=== PATIENT | female | born 1970 | race Caucasian/White ===

== ENCOUNTER 2025-06-19 20:23 | Inpatient (IN) | payer BC ==
[~2025-06-19] VITALS: Ht 157.5 cm; Wt 82.0 kg
--- NOTE | 2025-06-19 20:32 | ELECTROCARDIOGRAPH REPORT ---
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
[2025-06-19 20:42] LABS: MEAN PLATELET VOLUME 7.1 FL (7.4-10.4); RED CELL DISTRIBUTION WIDTH 12.7 % (11.5-14.5)
--- NOTE | 2025-06-19 20:55 | RADIOLOGY REPORT ---
EXAM: DI CHEST,SINGLE VIEW CLINICAL HISTORY: CP TECHNIQUE: Single AP view of the chest WID: COMPARISON: None FINDINGS: Lines and tubes: ACDF projects over the lower cervical spine. Chest: The heart size and pulmonary vasculature is within normal limits. No pleural effusion, pneumothorax, or consolidation. The osseous structures are grossly intact. IMPRESSION: 1. No acute cardiopulmonary abnormality.
[2025-06-19 21:05] LABS: CREATININE 0.96 MG/DL (0.40-0.90); PRO BRAIN NATRIURETIC PEPTIDE 129 PG/ML (0-125); TOTAL CARBON DIOXIDE 20.6 MMOL/L (24-32); eCRCL 52 ML/MIN; eGFR 60 ML/MIN
[2025-06-19 21:37] LABS: APTT 26 SECONDS (22-32)
[2025-06-19] MEDS ORDERED: heparin 10,000 units/1 ML INJ IV PRN (21:45)
[2025-06-19] MEDS: HEPARIN DRIP-CARDIAC**PHARMACIST-TO-DOSE IV ONE (21:48)
[2025-06-19] MEDS: heparin 10,000 units/1 ML INJ IV ONE (22:04)
[2025-06-19] MEDS: heparin 25,000 UNIT/250ml bag 250 ML IV PRN (22:05)
[2025-06-19] MEDS: MESSAGE TO NURSING IV ONE (22:10)
[2025-06-19] MEDS ORDERED: magnesium sulf-water 4G/100mL 100 ML IV PRN (22:15)
[2025-06-19] MEDS ORDERED: magnesium sulf-water 2g/50mL 50 ML IV PRN (22:15)
[2025-06-19] MEDS ORDERED: HYDROmorphone inj. 0.5 MG/0.5 ML DISP.SYRIN IV PRN (22:15)
[2025-06-19] MEDS ORDERED: HYDROmorphone/PF 0.2 MG/ML SYRINGE IV PRN (22:15)
[2025-06-19] MEDS ORDERED: magnesium Cl slow-release 64mg tablet PO PRN (22:15)
[2025-06-19] MEDS ORDERED: mag hydrox/Alum hydrox/simeth 30ml oral suspension PO PRN (22:15)
[2025-06-19] MEDS ORDERED: potassium Cl 20 mEq SR tablet PO PRN (22:15)
[2025-06-19] MEDS ORDERED: ondansetron/PF 4mg/2ml inj IV PRN (22:15)
[2025-06-19] MEDS ORDERED: potassium Cl 40MEQ/1/2NS 520ml 520 ML IV PRN (22:15)
[2025-06-19] MEDS ORDERED: magnesium hydroxide 30ml (MOM) UD suspension PO PRN (22:15)
[2025-06-19] MEDS: PERFLUTREN PROTEIN-A MICROSPHR (Optison) 0.22 MG/ML 3ML VIAL IV ONE (22:35)
[2025-06-19 23:11] LABS: CHOL/HDL RATIO 5.6 (0.00-4.99); LDL CHOLESTEROL 193 MG/DL (50-100)
[2025-06-19] MEDS: carvedilol 6.25mg tablet PO SCH (23:21)
[2025-06-19] MEDS: aspirin 81mg, enteric-coated 1 TAB TABLET.DR PO SCH (23:21)
[2025-06-19] MEDS: potassium Cl 20 mEq SR tablet PO PRN (23:32)
--- NOTE | 2025-06-19 23:40 | HISTORY AND PHYSICAL-Residence ---
History & Physical Providers to CC Resident Creating Document: MAT ARROYO, RES ~ History of Present Illness Primary Medical Doctor: Eric De La Rosa [place] Reason for Admit\Complaint: Chest pain History of Present Illness 55 years old women with past medical history of Hyperlipidemia,Depression and anxiety Comes to ED with left sided chest pain, Patient reported experiencing on and off chest pain for past 4 weeks with each episode lasting about 10mins and typically subsided with breathing. Today, She developed more severe chest pain that began around 4:30 pm when at rest.which lasted 2 hrs,Described asw crushing pain on the left side of chest , was rated 10/10 in intensity which radiating to both shoulder, arms and the neck- now the pain is 2/10 dull left chest pain. there are no clear aggravating or relieving factors. 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 Lives with Her Spouse at Home Smokes 1 pack cigarette every 3 days from past 14 years Smokes marijuana every night for sleep Not a drug user Not a alcohol drinker Her PCP: Dr.Jennerfer [facility] (she has appointment this Friday) ROS ROS Constitutional: No fever, chills, dizziness, weakness, weight gain or loss Eyes: No pain, erythema, discharge, blurring of vision ENT: No sore throat, epistaxis, tinnitus Cardiovascular: presents with 2/10 dull chest pain, No current palpitations, syncope, lower extremity edema, paroxysmal nocturnal dyspnea Respiratory: patient reported shortness of breath during chest pain , No cough, hemoptysis Gastrointestinal: Constipation and decrease appetite , No Nausea, vomiting,diarrhea and abdominal pain. No, hematemesis, bloating, melena Genitourinary: No frequency, urgency, nocturia, hematuria or dysuria Musculoskeletal: Patient has a long history of on and off back pain and join pain Integumentary: No change in skin, hair, nails. No swelling, bruising, abrasions Neurologic: No headache, neck pain, numbness or tingling of the extremities, weakness Psychiatric: patient takes medication for depression,No delusions, loss of interest in normal activity or change in sleep pattern, hallucinations, suicidal ideations Endocrine: No fatigue, weakness, polydipsia, polyuria, change in appetite, heat or cold intolerance, sweating, dry skin Hematological: No bleeding, petechiae, bruising Allergies: No asthma or urticaria Exam Vitals: Vital Signs Date Time Temp Pulse Resp B/P (MAP) Pulse Ox O2 Delivery O2 Flow Rate FiO2 06/19/25 23:22 63 06/19/25 21:20 18 06/19/25 20:28 98.0 99 0 General: Alert and oriented x4 HEENT: Normocephalic and atraumatic. Pupils equal round reactive to light and accommodation. Extraocular movements intact. Oral and nasal mucosa moist. Neck: Trachea is in midline. No masses or JVD Chest: Bilateral normal breath sounds. No crackles, rhonchi or wheezes Cardiovascular: Regular rate and regular rhythm. S1-S2 normal. No rubs or murmurs Abdomen: No tenderness present. Soft and nondistended. Normoactive bowel sounds Extremities: No cyanosis, clubbing or edema. Central Nervous System: No gross sensory or motor deficits CN II to XII grossly intact Skin: Warm and dry Diagnostic Data Last Recorded Lab Results: 06/19/25203506/19/252035 Diagnostic Data: Laboratory Tests Test 06/19/25 20:36 Activated Partial Thromboplast Time 26 SECONDS (22-32) Coagulation Comments Counseling Services Smoking & Tobacco Cessation: 3-10 Minutes Advance Care Planning Advanced Care plannin - 30 Minutes Additional Plan 55 years old women with past medical history Bipolar disorder, anxiety, depression and hyperlipidemia is currently evaluated for chest pain NSTEMI HASMUKH Score : 3 Heart Score : 1 patient presented with 10/10 chest pain at rest presented to ED that relieved with Nitroglycerin EKG: Sinus rhytm , Right axis deviation , Abnormal T wave Troponin [id number] trending up ProBnp: 129 BP:125/72 , Pulse :62 , Oxygen: 99 on room air, RR: 16 H/H; 14.9/43.4 , WBC: 9.4 , platelet : 259 Pt: 26 Na:138, K: 3.4 , HCO3: 20.6 Blood glucose : 140 , HbA1C: 5.4 Urine tox : Positive for Cannabinoids Chest Xray : No acute cardiopulmonary abnormality Lipid panel : T, Cholesterol;258, LDL: 193 Plan: Started on Heparin drip Given Asprine loading dose 324 mg PO once and started on Asprine 81 mg Po daily started Carvedilol 3.25mg Po BID Started Atrovostatin 40mg Po Daily Started 5mg Lisinopril Po OD Started Nitroglycerin sublingual 0.4 mg PRN Follow up with ECHO and CTA Chest x NPO Midnight for Cardiology consult tomorrow for further management H/O Hyperlipidemia : Patient mentioned having a history of hyperlipidemia and she currently not on any antihyperlipidemic drugs Lipid panel : T, Cholesterol;258, LDL: 193 Plan: Started on Started Atrovostatin 40mg Po Daily Follow up with PCP H/O Depression : Continue home Bupropion H/O Anxiety: Continue home med busprinone H/O insomnia Continue home med trazadone H/O Post Menopausal Syndrome: patient who is a current smoker is on Estradiol 1mg and Medroxyprogesterone 5 mg po Daily plan: Held Home med for PMS Code status: Full code Diet: NPO DVT prophylaxis: Heparin Drip Disposition: Patient is started on medical management and her troponins are trending up [phone], Currently on NPO and cardiology consult tomorrow for further management Mat Arroyo MD Internal Medicine, PGY 1 I saw and discussed the care of this pt with the resident team I have asked that in addition to acute ACS mgt which is in progress we will get a CTA chest as well to investigate and exclude a dissection etc I reviewed the resting EKG done of this patient as well. We will have cardiology come on board AYANNA Monitor closely in the PCU ---low threshold to move to ICU Thank you Date of Service: Jun 19, 2025 Billing Provider: EMILY GILBERT MD, SATISH, RES Jun 19, 2025 23:40 EMILY GILBERT MD Jun 20, 2025 03:50
[2025-06-19] MEDS ORDERED: TRAZ-251 PO (23:47)
[2025-06-19] MEDS ORDERED: BUSP10TA3 PO (23:53)
[2025-06-19] MEDS ORDERED: OMEP20TA23 PO (23:53)
[2025-06-19] MEDS ORDERED: MEDR5TAB4 PO (23:53)
[2025-06-19] MEDS ORDERED: LORA10TA65 PO (23:53)
[2025-06-19] MEDS ORDERED: ESTR1TAB28 PO (23:53)
[2025-06-19] MEDS ORDERED: BUPR-726 PO (23:53)
[2025-06-20] VITALS (20 sets, daily range): BP systolic 94–163; BP diastolic 44–98; PULSE 57–83; RESP 11–20; TEMP 97.6–98.6; O2SAT 83–98
[2025-06-20 00:46] LABS: LEUKOCYTE ESTERASE ,URINE NEGATIVE (Neg); NITRITES, URINE NEGATIVE (Neg); OCCULT BLOOD,URINE NEGATIVE (Neg)
[2025-06-20 00:51] LABS: UA COLLECTION TYPE CLN CATCH MIDSTREAM
[2025-06-20 01:04] LABS: URINE AMPHETAMINE SCREEN NEGATIVE (Neg); URINE BARBITUATE SCREEN NEGATIVE (Neg); URINE BENZODIAZEPINES SCREEN NEGATIVE (Neg); URINE CANNABINOID SCREEN POSITIVE (Neg); URINE COCAINE SCREEN NEGATIVE (Neg); URINE METHADONE SCREEN NEGATIVE (Neg); URINE OPIATE SCREEN NEGATIVE (Neg); URINE PHENCYCLIDINE SCREEN NEGATIVE (Neg)
[2025-06-20] MEDS: HYDROcodone/acetaminophen 10/325mg tab PO PRN (03:13)
[2025-06-20] MEDS: diphenhydrAMINE 25 MG/10 ML UD oral solution PO ONE ×2 (04:05→23:24)
--- NOTE | 2025-06-20 05:08 | RADIOLOGY REPORT ---
Procedure: CT CTA AORTA DISECTION W/ IV CONTRAST HISTORY: possible aortic dissection, severe chest pain Comparison Study: None Exam Date:06/20/2025 04:32 AM TECHNIQUE: CTA scanner volumetric data acquisition of chest, abdomen and pelvis was obtained following intraveno us administration of intravenous contrast without any reported adverse effects. Axial images were re constructed and additional sagittal and coronal images were reformatted. arterial phase imaging were performed. Postprocessing was also performed on a Separate workstation. 3D images were performed on a dedicated workstation and reviewed for reporting. Radiation Dose : CT Dose: CTDI volume is 21.6 mGy. Dose-length product is 1381.7 mGy*cm FINDINGS: Vascular: There is normal caliber of abdominal aorta without evidence of aortic dissection or aneurysm. The mesenteric, and bilateral renal, iliac and femoral arteries are widely patent without any focal enrico nosis or aneurysm. Lung : Dependent atelectasis. 0.5 cm ground-glass nodule in the left lower lobe, image 46.0.4 cm nodu le in the right upper lobe, image 37. Liver: The liver is normal in size. No focal lesions. Normal hepatic vascular enhancement. Gallbladder and Biliary Tree: Unremarkable Spleen: Unremarkable Pancreas: The pancreas is normal in appearance without focal lesions or abnormal enhancement. Adrenal Glands: Unremarkable Kidneys: No hydronephrosis. 0.1 cm punctate nonobstructing stone in the left lower pole kidney. Bladder: Unremarkable Bowel: The stomach is grossly normal in appearance. Small bowel and colon are normal in caliber and d istribution. Normal appendix is visualized in the right lower quadrant without findings of appendici tis. Ascites: Absent Lymphadenopathy: No mesenteric, retroperitoneal or periportal lymphadenopathy. Abdominal Wall and Mesentery: Unremarkable. Vasculature: The visualized abdominal aorta is normal in size and caliber. Abdominal and pelvic vess els demonstrate normal enhancement. Pelvic Organs: Unremarkable Musculoskeletal: No aggressive focal bony lesions, acute fractures or dislocation. IMPRESSION: No evidence of acute aneurysm, dissection, or intramural hematoma. 0.5 cm ground-glass nodule in the left lower lobe, image 46. 0.4 cm nodule in the right upper lobe, image 37. 0.1 cm punctate nonobstructing stone in the left lower pole kidney. Fleischner Society pulmonary nodule recommendations (2017): Single solid nodule <6 mm Low-risk patients: no routine follow-up required High-risk patients: optional CT at 12 months (particularly with suspicious nodule morphology and/or upper lobe location) Solitary solid nodule 6-8 mm Low-risk patients: CT at 6-12 months, then consider CT at 18-24 months High-risk patients: CT at 6-12 months, then CT at 18-24 months Solitary solid nodule >8 mm (>250 mm3) Low-risk and high-risk patients: consider CT at 3 months, PET/CT, or tissue sampling Multiple solid nodules <6 mm Low-risk patients: no routine follow-up required High-risk patients: optional CT at 12 months Multiple solid nodules >6 mm Low-risk patients: CT at 3-6 months, then consider CT at 18-24 months High-risk patients: CT at 3-6 months, then CT at 18-24 months When multiple nodules are present, the most suspicious nodule should guide further individualized management. Solitary groundglass opacities < 6 mm require no follow-up Multiple groundglass opacities < 6 mm: CT 3-6 months. If stable consider CT at 2 , and 4 years Groundglass opacities >6 mm: follow-up in 6-12 months and then every 2 years for 5 years. Groundglass opacities greater than 6 mm with part solid component follow-up CT in 3-6 months to confirm persistence. If unchanged and solid component remains less than [address] for 5 years Multiple groundglass opacities greater than 6 mm: CT at 3-6 months. Subsequent management based on the most suspicious nodules. These recommendations do not necessarily apply to women, patients with immunosuppression or a prior history of cancer, patients with multiple nodules that are suspicious for metastasis or infection, or patients with mediastinal lymphadenopathy or pleural effusion in whom cancer is strongly suspected.
[2025-06-20 06:38] LABS: MEAN PLATELET VOLUME 7.7 FL (7.4-10.4); RED CELL DISTRIBUTION WIDTH 12.5 % (11.5-14.5)
[2025-06-20 07:20] LABS: CREATININE 0.87 MG/DL (0.40-0.90); TOTAL CARBON DIOXIDE 21.4 MMOL/L (24-32); eCRCL 57 ML/MIN; eGFR 67 ML/MIN
[2025-06-20] MEDS: K and/or MAG REPLACEMENT MC SCH (08:00)
[2025-06-20] MEDS: pantoprazole 40mg Tablet.DR PO SCH (09:15)
[2025-06-20] MEDS: BUPROPION HCL 150MG XL 24 HR 150 MG TAB PO SCH (09:15)
[2025-06-20] MEDS: docusate sod 100mg capsule PO SCH (09:17)
[2025-06-20] MEDS: MESSAGE TO NURSING IV ONE ×2 (11:10→22:10)
[2025-06-20] MEDS: normal saline 1000ml 1,000 ML IV ONE (12:24)
[2025-06-20] MEDS ORDERED: LIDOcaine 1% (10mg/ml) 2ml vial ONE (13:05)
[2025-06-20] MEDS ORDERED: midazolam 1 mg/ML 2ml injection ONE ×2 (13:05→13:58)
[2025-06-20] MEDS ORDERED: verapamil 2.5 mg/ml inj IV ONE (13:05)
[2025-06-20] MEDS ORDERED: fentaNYL/PF 50MCG/1 ML 2ML syringe ONE ×2 (13:05→13:58)
[2025-06-20] MEDS ORDERED: iohexol 350 MG/ML 50ML vial IV ONE (13:05)
[2025-06-20] MEDS ORDERED: heparin 1,000unit/ml 10ml vial 10 ML ONE (13:05)
[2025-06-20] MEDS ORDERED: nitroGLYCERIN 500mcg/5mL D5W 5 ML IV ONE ×3 (13:05→14:29)
[2025-06-20] MEDS ORDERED: atropine 0.1mg/ml 10ml syringe ONE (14:29)
[2025-06-20 14:52] LABS: ISTAT HGB ART 12.9 g/dl (12.0-16.0); ISTAT Hct ART 38 %PCV (35-45); ISTAT O2 SATURATION ARTERIAL 96 % (95-98); ISTAT SOURCE ART
[2025-06-20] MEDS ORDERED: normal saline 1000ml 1,000 ML IV SCH (15:30)
--- NOTE | 2025-06-20 17:17 | ELECTROCARDIOGRAPH REPORT ---
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 RANDY Castillo Measurements Intervals [place] Rate: 58 P: 60 NV: 139 QRS: 3 QRSD: 101 T: 4 QT: 463 QTc: 455 Interpretive Statements Sinus rhythm Borderline T abnormalities, inferior leads Electronically Signed On 06-20-2025 19:25:[address] RANDY Castillo Please click the below link to view image of tracing.
--- NOTE | 2025-06-20 17:41 | PROGRESS NOTE- Residence ---
Progress Note - Resident Providers to CC Resident Creating Document: BENNY HUBER RES ~ Antibiotic Timeout Antibiotic Ordered?: No Subjective Patient was seen and examined at bedside, claims of improvement in chest pain since yesterday. Patient to undergo cardiac catheterization today. Objective Vital Signs Date Time Temp Pulse Resp B/P (MAP) Pulse Ox O2 Delivery O2 Flow Rate FiO2 06/20/25 16:00 97.7 60 16 132/70 (90) 98 06/20/25 08:00 Room Air 0.0 Result Diagram: 06/20/25 0539 06/20/25 0539 Awake , alert, and oriented x4, resting comfortably in the bed, in no acute distress HEENT: Atraumatic, normocephalic, EOMI, anicteric sclera ; pink conjunctiva Neck: Trachea midline. Supple, full range of motion, no JVD Cardiac: Regular rhythm, regular rate with no murmurs all over the precordium. Respiratory: Equal breath sounds bilaterally, no tachypnea, no wheezing ,rub or rales, Chest wall is symmetric and without deformity. Gastrointestinal: Abdomen symmetric, non-distended, soft, non-tender, normal bowel sounds x4 quadrant, normoactive, no hepatosplenomegaly Musculoskeletal: No pedal edema, no cyanosis Neurological: Speech is clear, alert, and oriented x 4. No motor or sensory deficit, deep tendon reflexes normal, cerebellar intact. Cranial nerves II-XII intact. Skin: Warm and dry Coagulation Studies Laboratory Tests Test 06/19/25 20:36 06/20/25 10:16 06/20/25 14:41 Activated Partial Thromboplast Time 26 SECONDS (22-32) APTT (Heparin Protocol) 84 SECONDS (45-60) H Coagulation Comments Activated Clotting Time 210 SEC (101-148) H Advance Care Planning Advanced Care plannin - 30 Minutes Assessment Assessment 55-year-old female with hyperlipidemia, depression/anxiety, and smoking history presenting with NSTEMI (MERI 3, HEART 6). She is hemodynamically stable, troponins are rising, and EKG shows nonspecific changes. She is appropriately on aspirin, statin, beta-shannan, NOEL inhibitor, and heparin drip. Patient is NPO and scheduled for urgent cardiac catheterization today per Dr. Román Gibbons (Cardiology). Plan Plan 1.NSTEMI (Non-ST Elevation Myocardial Infarction) MERI Score: 3 (intermediate risk; ~13% risk of /LA/revascularization in 14 days). HEART Score: 6 (History: highly suspicious = 2, ECG: abnormal ST/T = 1, Age: 4465 = 1, Risk factors: 3 = 2 [HLD, smoking, estrogen use, psychiatric meds], Troponin: >3 normal = 2) High risk, recommends admission, invasive strategy. Presentation: 55-year-old female with history of hyperlipidemia, anxiety, depression, and bipolar disorder presenting with severe left-sided chest pain at rest (10/10, crushing, radiating to shoulders/arms/neck, associated with palpitations, dizziness, chills). Pain improved with nitroglycerin, currently 2/10 dull. Investigations: EKG: Sinus rhythm, right axis deviation, abnormal T waves Troponin: rising (324 1416 2228) BNP: 129 (not markedly elevated) CTA Chest: No acute aortic or pulmonary pathology Chest X-ray: No acute cardiopulmonary abnormality Plan: Continue Heparin drip until cardiac catheterization Aspirin 81 mg PO daily (s/p loading dose 324 mg) Atorvastatin 40 mg PO daily (high-intensity statin Carvedilol 3.25 mg PO BID for rate and BP control Lisinopril 5 mg PO daily (neurohormonal blockade, CAD benefit) Nitroglycerin 0.4 mg SL PRN for chest pain NPO for left heart catheterization (LHC) today Consulted Dr. Román Gibbons (Cardiology) Proceed with cardiac catheterization today for definitive management 2.Hyperlipidemia LDL 193 mg/dL, Total cholesterol 258 mg/dL, TG 146 mg/dL Plan: Continue Atorvastatin 40 mg PO daily Follow-up: Outpatient PCP and lipid panel recheck in 68 weeks 3.Psychiatric Disorders (Depression, Anxiety, Bipolar Disorder, Insomnia) Bupropion (continue) Buspirone (continue) Trazodone (continue) Plan: Continue home psychiatric medications as tolerated during admission 4.Post-Menopausal Hormone Therapy (Estradiol + Medroxyprogesterone) Patient is a smoker on estrogen/progestin therapy increases thrombotic risk in setting of ACS. Plan: Hold estrogen and medroxyprogesterone indefinitely. Recommend outpatient gynecology/PCP discussion for non-hormonal management of menopausal symptoms. 5.Electrolyte Abnormalities Hypokalemia Potassium 3.4 mmol/L, HCO3 20.6 mmol/L (mild metabolic acidosis). Plan: Replete K to maintain >4.0 in ACS setting. Monitor BMP. 6.Social / Lifestyle Factors Tobacco use and cannabis use (urine tox positive). Counseling for smoking cessation (high cardiovascular risk) Nicotine replacement post-procedure Stereotype Caster on cannabis cessatio Diet: NPO until after cardiac catheterization Code Status: Full code. Disposition: Inpatient, awaiting [facility] today Follow-up: Cardiology to guide post-cath management (possible PCI). PCP follow- up for chronic disease management Benny Huber MD Internal Medicine Resident, PGY-2 Date of Service: Jun 20, 2025 Billing Provider: YUDITH FONG MD Common Visit Codes: 38350-[id number] INP/OBS CARE(HIGH) BENNY HUBER, RES Jun 20, 2025 17:41 YUDITH FONG MD Jun 20, 2025 21:10
--- NOTE | 2025-06-20 19:22 | CARDIOLOGY REPORT ---
APPROVED REPORT EXAM: Comprehensive 2D, Doppler, and color-flow Echocardiogram. Patient Location: 3028 A Blood Pressure: 132/70 mmHg Heart Rate: 53 bpm Rhythm: SINUS BRADYCARDIA Indications CHEST PAIN ELEVATED PROBNP (129) HS TROPONIN 324, 1416, 2228 Hog Tender: Marjorie Smith MD (consult) Previous echo: none 2D Dimensions RVDd 3.6 cm LA Diam4.5 cm IVSd 0.9 (0.7-1.1cm) LVDd 4.3 cm PWd 1.0 (0.7-1.1cm) IVSs 1.3 (0.8-1.2cm) LVDs 2.4 (2.5-4.0cm) PWs 1.5 (0.8-1.2cm) LVOT Diameter 1.92 (1.8-2.4cm) LVEF(%) 56.4 (>50%) Ao Asc Diam.2.77 cmIVC 17.76 mm FS (%) 44.8 % SV 62.8 ml CO 3.3 L/min M-Mode Dimensions Left Atrium(MM) 3.20 (2.5-4.0cm) Aortic Root 2.37 (2.2-3.7cm) Aortic Cusp Exc 1.60 (1.5-2.0cm) Biplane 2D LA Volumes LA ESV Index 13.57 mL/m2 Aortic Valve AoV Peak José Manuel. 163.7 cm/s AoV VTI 36.3 cm AO Peak GR. 10.7 mmHg AO Mean GR. 6 mmHg LVOT VTI 26.79 cm LVOT Peak José Manuel. 101.1 cm/s ZACH(VTI)/BSA 2.13 cm2/m2 ZACH (VTI) 2.13 cm2 Mitral Valve MV E Velocity 95.7 cm/s MV Peak Gr. 5 mmHg MV DECEL TIME 212 ms MV A Velocity 86.8 cm/s MV PHT 56 ms E/A Ratio 1.1 MVA (PHT) 3.93 cm2 MV XZnm703.2 cm/s TDI Medial E' P. V 8.52 cm/s E/Medial E' 11.2 Tricuspid Valve TR P. Velocity 257 cm/s RAP ESTIMATE 10 mmHg TR Peak Gr. 27 mmHg RVSP 37 mmHg Pulmonary Vein S1 Velocity 60.5 cm/s D2 Velocity 34.4 cm/s PVa Bpaxumwo40.1 cm/s PVa Rfcesxph16 msec LEFT VENTRICLE Normal LV size and wall thickness. Overall systolic function is normal. Aberrant LV band is present. Overall LVEF is 55-60%. RIGHT VENTRICLE RV is mildly dilated in size with normal function. RVSP is estimated at 37 mmHg. ATRIA LA size is normal. AORTIC VALVE Trileaflet AV appears mildly sclerotic without stenosis or insufficiency. MITRAL VALVE Mild MV annular calcification without stenosis. Moderateregurgitation. TRICUSPID VALVE TV appears structurally normal with moderate regurgitation. PULMONIC VALVE Normal PV without stenosis, physiologic insufficiency. GREAT VESSELS Aortic root is normal in size. Ascending aorta is normal in size. IVC is normal in size and collapses greater than 50% with inspiration. PERICARDIUM Normal pericardium. No effusion. Other Information Study Quality: Adequate Conclusion Overall LVEF is 55-60%. Normal LV size and wall thickness. Overall systolic function is normal. Aberrant LV band is present. RV is mildly dilated in size with normal function. RVSP is estimated at 37 mmHg. Trileaflet AV appears mildly sclerotic without stenosis or insufficiency. Mild MV annular calcification without stenosis. Moderateregurgitation. TV appears structurally normal with moderate regurgitation. Normal PV without stenosis, physiologic insufficiency. Normal pericardium. No effusion.
[2025-06-21 02:00] VITALS: BP 110/63; PULSE 62; RESP 16; TEMP 98.6; O2SAT 96
[2025-06-21 02:35] LABS: APTT 31 SECONDS (22-32)
[2025-06-21 02:42] LABS: MEAN PLATELET VOLUME 7.5 FL (7.4-10.4); RED CELL DISTRIBUTION WIDTH 12.6 % (11.5-14.5)
[2025-06-21 02:49] LABS: CREATININE 0.74 MG/DL (0.40-0.90); PRO BRAIN NATRIURETIC PEPTIDE 471 PG/ML (0-125); TOTAL CARBON DIOXIDE 22.2 MMOL/L (24-32); eCRCL 67 ML/MIN; eGFR 81 ML/MIN
[2025-06-21] MEDS: MESSAGE TO NURSING IV ONE (03:05)
--- NOTE | 2025-06-21 03:50 | CONSULTATION ---
DATE OF CONSULTATION: 06/20/2025 DICTATING PHYSICIAN: RANDY Smith MD CARDIOLOGY CONSULTATION PRIMARY PHYSICIAN: Yoli Stapleton MD at [facility]. CARDIOLOGY: RANDY Smith MD IDENTIFICATION: 55 years old female. REASON FOR EVALUATION: A 55-year-old smoker with hyperlipidemia with NSTEMI with elevated troponin at 2228. HISTORY OF PRESENT ILLNESS: The patient is a 55-year-old postmenopausal female with hyperlipidemia, anxiety, depression, and chronic history of smoking who comes with exertional chest pain of 4-6 weeks' duration and found to have elevated troponin and a cardiology consult has been requested. Initially, her troponins were 324, increased to 1416 and then to 2228. Her EKG showed normal sinus rhythm with right axis deviation and abnormal T wave indicating ischemia. The patient's total cholesterol was 258 with an LDL of 193 and triglycerides of 146. The patient states that she did have a cervical neck fusion C4, C5, C6, C7, probably in and she thought that the chest area pain was related to the neck. Apparently, she has been having exertional neck discomfort, radiating to the jaw for the last few weeks and usually it is brought on by exertion, some of rest and that is what made her come to the Emergency Room. 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 It is a full-time job and she is reasonably active; however, she does not have any formal exercise program, walks around the house, reports dyspnea while going uphill, NYHA dyspnea class 2-3. No history of stent, palpitations, or syncopal episode. Apparently, the patient did have mild ankle swelling, which has resolved now. No prior history of myocardial infarction or congestive heart failure. No history of sustained palpitations or syncopal episode. No history of congenital rheumatic heart disease. PAST MEDICAL HISTORY: * Anxiety and depression. * DJD of the neck. * Hyperlipidemia. * Chronic history of tobacco abuse, using about week from the age of 16. Continues to do that. May have some underlying COPD. PAST SURGICAL HISTORY: Cervical neck fusion C4, C5, C6, C7. SOCIAL HISTORY: The patient is , lives with her . Her neck surgery was done back at [facility] in [place] by relocated since then to [place] and they live in [facility]. 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 Her father at age 82, had multiple balloon procedures and heart attack. Mother is 80-year-old, alive, estranged. MEDICATIONS AT HOME: Include bupropion 150 mg once a day, buspirone 10 mg p.o. t.i.d., estradiol 1 mg p.o. daily, loratadine 10 mg p.o. daily, medroxyprogesterone, omeprazole 20 mg p.o. daily, and trazodone 50 mg p.o. daily. REVIEW OF SYSTEMS: HEENT: Wears reading glasses. No hearing impairment. RESPIRATORY: Mild exertional shortness of breath. MUSCULOSKELETAL: Arthralgias including neck. CENTRAL NERVOUS SYSTEM: No stroke, TIA, or seizures. PSYCHIATRIC: Has a history of anxiety and depression. PHYSICAL EXAMINATION: GENERAL: The patient is conscious, alert, and oriented. As I start examining, the patient has 9/10 chest pain which is resolved with sublingual nitroglycerin and is currently pain free. VITAL SIGNS: Temperature 98 degrees, pulse 74, blood pressure 114/66. NECK: No JVD. Carotids equally well felt. CARDIAC: Regular rate and rhythm. S1 and S2 normal. No S3 or S4. LUNGS: Clear to auscultation bilaterally. ABDOMEN: Soft. Bowel sounds present. EXTREMITIES: No edema, cyanosis, or clubbing. CENTRAL NERVOUS SYSTEM: No lateralizing signs. LABORATORY DATA: Sodium 136, potassium 3.8, chloride 105, carbon dioxide 21.4, BUN 10, creatinine 0.87. Troponin as mentioned earlier 324, 1416, 2228; total cholesterol 258; LDL of 193; and HDL of 46. DIAGNOSTIC DATA: CT of the chest done on 06/20/2025. Impression, no dissection or aneurysm. The patient has ground-glass nodule in the left lower lobe. She has got nodules in the left lower lobe, right upper lobe, and she also has a nonobstructing kidney in the left lower pole of the kidney. IMPRESSION AND PLAN: * A 55-year-old female with exertional chest pain, abnormal EKG, and elevated troponin, on IV heparin and aspirin. After reviewing the risks, benefits, alternative options of different therapeutic options, the patient prefers to proceed with coronary angiography. Risks, benefits, and alternative options discussed. Informed consent obtained. We will arrange for the same. Also discussed with her , Ronny, . * Hyperlipidemia. Recommend atorvastatin 80 mg p.o. at bedtime. * COPD with continued smoking. The patient has decided to quit smoking and encouraged the same. * Other comorbidities include history of DJD of the neck, anxiety, and depression. BV MD Luis TID: [id number] RECEIPT: [id number] NO/TERRY/KE cc: Yoli Stapleton MD
[2025-06-21 06:00] VITALS: BP 128/60; PULSE 66; RESP 15; TEMP 98; O2SAT 97
[2025-06-21 07:04] LABS: ISTAT HGB MIX 12.9 g/dl (12.0-16.0); ISTAT Hct MIX 38 %PCV (35-45); ISTAT O2 SATURATION MIX VENOUS 69 % (60-80); ISTAT SOURCE VEN
--- NOTE | 2025-06-21 07:42 | CARDIOLOGY REPORT ---
DATE OF SERVICE: 06/20/2025 DICTATING PHYSICIAN: RANDY Smith MD CARDIAC CATHETERIZATION GENDER: Female. AGE: 55 years. HEIGHT: 158 cm. WEIGHT: 82 kg. BODY SURFACE AREA: 1.83 cm2. PRIMARY PHYSICIAN: Yoli Stapleton MD at [facility]. CARDIOLOGY: RANDY Smith MD INDICATION: The patient is a 55-year-old postmenopausal female with chronic history of smoking, untreated hyperlipidemia, ongoing chest pain for about 6 weeks, who presented with exertional angina, found to have an elevated troponin at 2200. After discussing risks, benefits and alternative options, decided to proceed with coronary angiography. The patient also has history of sleep apnea and decided to proceed with coronary angiography. Risks, benefits, alternative options discussed. Informed consent obtained. After discussing risks, benefits, and alternative options, the patient decided to proceed with coronary angiography. PROCEDURE TECHNIQUE: The patient underwent right heart catheterization, right antecubital approach, 6-Wallisian sheath. Post-procedure access site hemostasis secured with manual compression. The patient underwent left heart catheterization, right radial approach, 6-Wallisian right radial sheath. Post-procedure access site hemostasis secured with right radial band. The patient tolerated the procedure well. PROCEDURES DONE: * Fluoroscopy. * Ultrasound-guided right radial artery visualization and access. * Right heart catheterization. * Left heart catheterization. * LVG. * Coronary cineangiography. * Angioplasty of the proximal RCA. * Stenting of RCA. * Conscious sedation time of 75 minutes. FINDINGS: HEMODYNAMICS: Aortic systolic 94, diastolic 52, mean 64 mmHg. LVEDP is 22 mmHg. No gradient across the aortic valve. Right atrial mean 9 mmHg, RV 32/10 mmHg, PA 32/11 mmHg. Pulmonary capillary wedge pressure of 11 mmHg. Aortic oxygen saturation 96%. Pulmonary artery saturation 69%. Cardiac output for thermodilution method is . LEFT VENTRICULOGRAM: Ejection fraction overall by left ventriculography is about 60%. Left main coronary artery is a large caliber vessel engaged with JL-4 catheter mild luminal irregularities. LAD is a medium caliber vessel arising at the bifurcation of the left main coronary artery courses through the anterior interventricular groove and ends by wrapping around the apex. LAD proximally has about 40% and mid 20% narrowing. Diagonal is 2 mm caliber vessel with mild luminal irregularities. Circumflex is medium caliber vessel arising at the bifurcation of the left main coronary artery, courses through the left AV groove with mild luminal irregularities. OM1 is 2.25 mm caliber with mild luminal irregularities. OM2 is 2 mm caliber with minimal luminal irregularities. Right coronary artery is a medium caliber vessel arising from the right aortic sinus. There is a critical 98% plus narrowing in the proximal to mid portion. There is also 50% narrowing in the midportion. PTCA STENTING OF THE PROXIMAL MID RCA: After adequate heparinization, PTCA stenting was carried out. Procedure was carried out after adequate anticoagulation. A 6-Wallisian XB RCA guide without side hole gave good support. Lesion crossed with PT2 wire. Initially, the wire was in the lesion and we had to use a second wire to cross the lesion. The lesion was angioplastied with 2.25/12 mm semi-compliant balloon at 8 atmospheric pressure. The patient had a long lesion from the proximal to mid portion, which was stented with 3.5 x 38 mm Resolute [place] stent and postdilated with a 3.5 x 15 mm Trek [place] at 14 atmospheric pressure. Post-procedure, 0% residual with MERI 3 flow. The patient tolerated the procedure with no complication. IMPRESSION: A 55-year-old female presented with non-Q wave HI with ejection fraction of 60%. LVEDP of 22 mmHg with no gradient across the aortic valve. Pulmonary capillary wedge pressure of 11 mmHg. PA pressure of 38/11 mmHg. Left main normal. Proximal LAD long 40% narrowing. Mid 20% narrowing. Circumflex marginal with minimal disease, nondominant. Proximal RCA critical 98% narrowing, mid RCA with 50% to 60% narrowing, successfully angioplastied and stented with 3.5 x 38 Resolute [place] stent with 0% residual stenosis and MERI 3 flow. RECOMMENDATIONS: The patient was recommended to continue aspirin and Brilinta at least for a year and atorvastatin 80 mg to be at night and beta-blockers and ARB. The patient to quit smoking until her sleep apnea to be treated adequately. RANDY Smith MD TID: [id number] RECEIPT: [id number] NO/TERRY/KE cc: Yoli Stapleton
[2025-06-21 08:47] VITALS: BP 111/54; PULSE 64
[2025-06-21 09:01] VITALS: BP_SYST 111; PULSE 64
[2025-06-21] MEDS ORDERED: ASPI-1071 PO (10:33)
[2025-06-21] MEDS ORDERED: TICA90TA PO (10:33)
[2025-06-21] MEDS ORDERED: ATOR20TA66 PO (10:33)
[2025-06-21] MEDS ORDERED: LOP25T PO (10:33)
[2025-06-21] MEDS ORDERED: LOSA25TA41 PO (10:33)
[2025-06-21] MEDS: HYDROcodone/acetaminophen 5mg/325mg tablet PO PRN (11:42)
--- NOTE | 2025-06-21 12:01 | ELECTROCARDIOGRAPH REPORT ---
[facility] Test Date: 2025-06-21 Test Time: 11:58:34 Pat Name: NO LIMON Department: [facility] 3S Patient ID: [facility]-[id number] Room: [place] [address] A Gender: F Continuity Manager: ROBERT : 1970 Requested By: VIKAS CASTILLO Order Number: [id number] Reading MD: Dr. RANDY Castillo Measurements Intervals [place] Rate: 69 P: 23 HI: 135 QRS: -9 QRSD: 90 T: -28 QT: 397 QTc: 426 Interpretive Statements Sinus rhythm Nonspecific T abnormalities, inferior leads Electronically Signed On 06-21-2025 20:36:[address] RANDY Castillo Please click the below link to view image of tracing.
--- NOTE | 2025-06-21 18:13 | DISCHARGE SUMMARY-Residence ---
Discharge Summary Providers to CC Resident Creating Document: IRENEVENTURAChelNEFTALY LLOYD ~ Discharge Summary Admission Diagnosis: NSTEMI Hospital Course DATE OF ADMISSION: 06/19/2025 DATE OF DISCHARGE: 06/21/2025 Discharge Diagnosis\Comment: 1.NSTEMI (Non-ST Elevation Myocardial Infarction) MERI Score: 3 (intermediate risk; ~13% risk of /VT/revascularization in 14 days). HEART Score: 6 (History: highly suspicious = 2, ECG: abnormal ST/T = 1, Age: 4465 = 1, Risk factors: 3 = 2 [HLD, smoking, estrogen use, psychiatric meds], Troponin: >3 normal = 2) High risk, recommends admission, invasive strategy. 2.Hyperlipidemia 3.Psychiatric Disorders (Depression, Anxiety, Bipolar Disorder, Insomnia) 4.Post-Menopausal Hormone Therapy (Estradiol + Medroxyprogesterone) 5.Hypokalemia Operations\Procedures: Cardiac catheterization Consultants: Cardiology Complications: None Condition on DC: Stable New Medications: Aspirin (Ecotrin*) 81 Mg Tablet.dr 1 TAB PO DAILY for 30 Days, #30 TAB.SR Atorvastatin Calcium (Atorvastatin Calcium) 20 Mg Tablet 80 MG PO HS for 30 Days, #120 TAB Losartan Potassium (Losartan Potassium) 25 Mg Tablet 25 MG PO DAILY for 30 Days, #30 TAB Metoprolol Tartrate* (Lopressor tablet*) 25 Mg Tablet 25 MG PO BID for 30 Days, #60 TAB Hold for SBP below 100mm Hg Hold for Heart Rate below 60. Ticagrelor (Brilinta) 90 Mg Tablet 90 MG PO BID for 30 Days, #60 TAB Continued Medications: Bupropion HCl (Bupropion Xl) 150 Mg Tab.er.24h 1 TAB PO DAILY Buspirone HCl (Buspirone HCl) 10 Mg Tablet 1 TAB PO TID Estradiol (Estradiol) 1 Mg Tablet 1 TAB PO DAILY Loratadine (Claritin) 10 Mg Tablet 1 TAB PO DAILY for allergy symptoms for 30 Days, #30 TAB 0 Refills Medroxyprogesterone Acet (Medroxyprogesterone Acetate) 5 Mg Tablet 1 TAB PO HS Omeprazole Magnesium (Prilosec Otc) 20 Mg Tablet.dr 1 TAB PO DAILY for 30 Days, #30 TAB 0 Refills Trazodone HCl (Trazodone HCl) 50 Mg Tablet 1 TAB PO HS Discharge Summary: HPI as per admitting physician: 55 years old women with past medical history of Hyperlipidemia,Depression and anxiety Comes to ED with left sided chest pain, Patient reported experiencing on and off chest pain for past 4 weeks with each episode lasting about 10mins and typically subsided with breathing. Today, She developed more severe chest pain that began around 4:30 pm when at rest.which lasted 2 hrs,Described asw crushing pain on the left side of chest , was rated 10/10 in intensity which radiating to both shoulder, arms and the neck- now the pain is 2/10 dull left chest pain. there are no clear aggravating or relieving factors. the pain was associated with palpitations, dizziness and chills She denies any other symptoms Hospital course: The patient is a 55-year-old female with a history of hyperlipidemia, depression, anxiety, bipolar disorder, and tobacco use who presented with severe crushing chest pain radiating to her shoulders, arms, and neck, associated with palpitations and dizziness. Initial EKG demonstrated sinus rhythm with right axis deviation and nonspecific T-wave abnormalities. Serial troponins were elevated and rising ([phone]), consistent with an acute coronary syndrome. BNP was mildly elevated at 129, and CTA chest excluded aortic dissection and pulmonary embolism. She was diagnosed with a non-ST elevation myocardial infarction (NSTEMI) with a MERI score of 3 and HEART score of 6, and was started on standard ACS therapy including aspirin, statin, beta-shannan, NOEL inhibitor, and therapeutic heparin infusion. She was maintained NPO in preparation for urgent cardiac catheterization. On the day of admission, she underwent left heart catheterization under the care of Dr. Román Gibbons. Angiography revealed normal left main, mild luminal irregularities in the proximal and mid LAD, minimal disease in the circumflex, and critical 98% stenosis of the proximal RCA with additional 5060% narrowing of the mid RCA. Successful percutaneous coronary intervention (PCI) was performed with angioplasty and placement of a 3.5 38 mm Resolute [place] stent in the RCA, resulting in 0% residual stenosis and scientology of MERI 3 flow. The patient tolerated the procedure well without immediate complications. Post-procedure, she was transitioned to dual antiplatelet therapy with aspirin and ticagrelor (Brilinta), planned for at least 12 months, along with high- intensity statin therapy (atorvastatin increased to 80 mg nightly), beta- shannan, and ARB for secondary prevention. Potassium was repleted to maintain levels >4.0. Her estradiol/medroxyprogesterone hormone replacement therapy was discontinued given increased thrombotic risk in the setting of ACS, and she was counseled to follow up with her repairer sash and door for non-hormonal management of menopausal symptoms. During her admission, her psychiatric medications (bupropion, buspirone, and trazodone) were continued without adverse effect. She received counseling on smoking cessation and cannabis cessation, with plans to initiate nicotine replacement therapy after recovery from the procedure. The patient remained hemodynamically stable with improvement in chest pain and no recurrent ischemic symptoms. She was discharged home in stable condition with instructions for strict adherence to her dual antiplatelet regimen, optimization of risk factor modification, and close outpatient follow-up with cardiology and her primary care physician. Imaging: Chest x-ray: No acute cardiopulmonary abnormality. Echocardiogram: Overall LVEF is 55-60%. Normal LV size and wall thickness. Overall systolic function is normal. Aberrant LV band is present. RV is mildly dilated in size with normal function. RVSP is estimated at 37 mmHg. Trileaflet AV appears mildly sclerotic without stenosis or insufficiency. Mild MV annular calcification without stenosis. Moderateregurgitation. TV appears structurally normal with moderate regurgitation. Normal PV without stenosis, physiologic insufficiency. Normal pericardium. No effusion. CTA chest and thorax: No evidence of acute aneurysm, dissection, or intramural hematoma. 0.5 cm ground-glass nodule in the left lower lobe, image 46. 0.4 cm nodule in the right upper lobe, image 37. 0.1 cm punctate nonobstructing stone in the left lower pole kidney. Physical examination today: Awake , alert, and oriented x4, resting comfortably in the bed, in no acute distress HEENT: Atraumatic, normocephalic, EOMI, anicteric sclera ; pink conjunctiva Neck: Trachea midline. Supple, full range of motion, no JVD Cardiac: Regular rhythm, regular rate with no murmurs all over the precordium. Respiratory: Equal breath sounds bilaterally, no tachypnea, no wheezing ,rub or rales, Chest wall is symmetric and without deformity. Gastrointestinal: Abdomen symmetric, non-distended, soft, non-tender, normal bowel sounds x4 quadrant, normoactive, no hepatosplenomegaly Musculoskeletal: No pedal edema, no cyanosis Neurological: Speech is clear, alert, and oriented x 4. No motor or sensory deficit, deep tendon reflexes normal, cerebellar intact. Cranial nerves II-XII intact. Skin: Warm and dry Laboratory Tests Test 06/19/25 20:36 06/19/25 22:31 06/19/25 23:49 06/20/25 00:30 White Blood Count 9.4 X10'3 Red Blood Count 4.78 X10'6 Hemoglobin 14.9 g/dl Hematocrit 43.3 % Mean Corpuscular Volume 90.4 FL Mean Corpuscular Hemoglobin 31.2 PG Mean Corpuscular Hemoglobin Concent 34.5 g/dL Red Cell Distribution Width 12.7 % Platelet Count 259 X10'3 Mean Platelet Volume 7.1 FL Neutrophils (%) (Auto) 55.4 % Lymphocytes (%) (Auto) 35.4 % Monocytes (%) (Auto) 6.2 % Eosinophils (%) (Auto) 2.4 % Basophils (%) (Auto) 0.6 % Neutrophils # (Auto) 5.2 X10'3 Lymphocytes # (Auto) 3.3 X10'3 Monocytes # (Auto) 0.6 X10'3 Eosinophils # (Auto) 0.2 X10'3 Basophils # (Auto) 0.1 X10'3 CBC Comment Activated Partial Thromboplast Time 26 SECONDS Coagulation Comments Sodium Level 138 MMOL/L Potassium Level 3.4 MMOL/L Chloride Level 105 MMOL/L Carbon Dioxide Level 20.6 MMOL/L Anion Gap 12 Blood Urea Nitrogen 12 MG/DL Creatinine 0.96 MG/DL Estimated GFR/1.73 m2 60 ML/MIN BUN/Creatinine Ratio 12.5 Glucose Level 140 MG/DL Hemoglobin A1c 5.4 % Calcium Level 9.8 MG/DL Troponin I High Sensitivity 324 ng/L 1416 ng/L 2228 ng/L Pro-B-Type Natriuretic Peptide 129 PG/ML Albumin 3.9 G/DL Triglycerides Level 146 MG/DL Cholesterol Level 258 MG/DL LDL Cholesterol 193 MG/DL HDL Cholesterol 46 MG/DL Cholesterol/HDL Ratio 5.6 Chemistry Comments Troponin I High Sens Percent Delta 337 % 57 % Troponin I Hi Sens Absolute Change 1092 ng/L 812 ng/L Urine Specimen Description Cln catch midstream Urine Color Yellow Urine Clarity Clear Urine pH 6.0 Urine Specific [place] 1.020 Urine Protein Negative mg/dl Urine Glucose (UA) Negative mg/dl Urine Ketones 15 mg/dl Urine Occult Blood Negative Urine Nitrite Negative Urine Bilirubin Negative Urine Urobilinogen 0.2 E.U/dL Urine Leukocyte Esterase Negative Urine Culture Indicated Not ind Volume Urine Centrifuged 10 ml Urine Comment Urine Opiates Screen Negative Urine Methadone Screen Negative Urine Fentanyl Screen Negative Urine Barbiturates Screen Negative Urine Phencyclidine Screen Negative Urine Amphetamines Screen Negative Urine Benzodiazepines Screen Negative Urine Cocaine Screen Negative Urine Cannabinoids Screen Positive Drug Screen Comment Test 06/20/25 04:08 06/20/25 05:39 06/20/25 10:16 06/20/25 13:45 APTT (Heparin Protocol) 60 SECONDS 84 SECONDS Coagulation Comments White Blood Count 8.9 X10'3 Red Blood Count 4.75 X10'6 Hemoglobin 14.7 g/dl Hematocrit 43.4 % Mean Corpuscular Volume 91.3 FL Mean Corpuscular Hemoglobin 31.0 PG Mean Corpuscular Hemoglobin Concent 33.9 g/dL Red Cell Distribution Width 12.5 % Platelet Count 252 X10'3 Mean Platelet Volume 7.7 FL Neutrophils (%) (Auto) 39.3 % Lymphocytes (%) (Auto) 50.1 % Monocytes (%) (Auto) 5.8 % Eosinophils (%) (Auto) 4.1 % Basophils (%) (Auto) 0.7 % Neutrophils # (Auto) 3.5 X10'3 Lymphocytes # (Auto) 4.5 X10'3 Monocytes # (Auto) 0.5 X10'3 Eosinophils # (Auto) 0.4 X10'3 Basophils # (Auto) 0.1 X10'3 CBC Comment Sodium Level 136 MMOL/L Potassium Level 3.8 MMOL/L Chloride Level 105 MMOL/L Carbon Dioxide Level 21.4 MMOL/L Anion Gap 10 Blood Urea Nitrogen 10 MG/DL Creatinine 0.87 MG/DL Estimated GFR/1.73 m2 67 ML/MIN BUN/Creatinine Ratio 11.5 Glucose Level 95 MG/DL Calcium Level 8.9 MG/DL Magnesium Level 1.7 MG/DL Total Bilirubin 0.7 MG/DL Aspartate Amino Transf (AST/SGOT) 28 U/L Alanine Aminotransferase (ALT/SGPT) 23 U/L Alkaline Phosphatase 53 IU/L Total Protein 6.4 G/DL Albumin 3.4 G/DL Globulin 3.0 G/DL Albumin/Globulin Ratio 1.1 Chemistry Comments Activated Clotting Time 129 SEC Test 06/20/25 13:52 06/20/25 14:41 06/20/25 18:33 06/21/25 02:00 Bedside Blood Gas Source Eusebio Bedside Arterial Blood O2 Sat 96 % Bedside Mixed Venous O2 Saturation 69 % Bedside Hemoglobin (Blood Gas) 12.9 g/dl Bedside Hematocrit (Blood Gas) 38 %PCV Activated Clotting Time 210 SEC APTT (Heparin Protocol) > 139 SECONDS Coagulation Comments White Blood Count 7.9 X10'3 Red Blood Count 4.37 X10'6 Hemoglobin 13.5 g/dl Hematocrit 40.0 % Mean Corpuscular Volume 91.5 FL Mean Corpuscular Hemoglobin 30.9 PG Mean Corpuscular Hemoglobin Concent 33.8 g/dL Red Cell Distribution Width 12.6 % Platelet Count 195 X10'3 Mean Platelet Volume 7.5 FL Neutrophils (%) (Auto) 48.8 % Lymphocytes (%) (Auto) 40.6 % Monocytes (%) (Auto) 5.4 % Eosinophils (%) (Auto) 4.6 % Basophils (%) (Auto) 0.6 % Neutrophils # (Auto) 3.8 X10'3 Lymphocytes # (Auto) 3.2 X10'3 Monocytes # (Auto) 0.4 X10'3 Eosinophils # (Auto) 0.4 X10'3 Basophils # (Auto) 0.0 X10'3 CBC Comment Activated Partial Thromboplast Time 31 SECONDS Sodium Level 136 MMOL/L Potassium Level 3.7 MMOL/L Chloride Level 108 MMOL/L Carbon Dioxide Level 22.2 MMOL/L Anion Gap 6 Blood Urea Nitrogen 8 MG/DL Creatinine 0.74 MG/DL Estimated GFR/1.73 m2 81 ML/MIN BUN/Creatinine Ratio 10.8 Glucose Level 84 MG/DL Calcium Level 8.6 MG/DL Magnesium Level 1.7 MG/DL Total Bilirubin 0.5 MG/DL Aspartate Amino Transf (AST/SGOT) 28 U/L Alanine Aminotransferase (ALT/SGPT) 31 U/L Alkaline Phosphatase 46 IU/L Pro-B-Type Natriuretic Peptide 471 PG/ML Total Protein 5.7 G/DL Albumin 3.0 G/DL Globulin 2.7 G/DL Albumin/Globulin Ratio 1.1 Chemistry Comments Test 06/21/25 08:06 APTT (Heparin Protocol) 24 SECONDS Coagulation Comments Advise on discharge: - follow up with cardiology in 2 months, a doctor Rmoán Gibbons's office - continue medications as prescribed - all 911/go to the nearby ED if any emergencies *Problems/Diagnosis: (1) NSTEMI (non-ST elevated myocardial infarction) Total Time Spent on D/C: > 30 Minutes Date of Service: Jun 21, 2025 Billing Provider: YUDITH FONG MD Common Visit Codes: 99082-IWZ/[id number] DISCH DAY >30min GABINO MACEDO, RES Jun 21, 2025 18:13 YUDITH FONG MD Jun 22, 2025 07:07
--- NOTE | 2025-06-21 19:06 | PROGRESS NOTE- Residence ---
Progress Note - Resident Providers to CC Resident Creating Document: INDRA ELIZONDO, NEFTALY ~ Antibiotic Timeout Antibiotic Ordered?: Yes Subjective The patient has been evaluated at bedside. Currently asymptomatic. Objective Vital Signs Date Time Temp Pulse Resp B/P (MAP) Pulse Ox O2 Delivery O2 Flow Rate FiO2 06/21/25 09:01 64 06/21/25 08:47 111/54 (73) 06/21/25 08:00 Room Air 0.0 06/21/25 06:00 98.0 15 97 Physical exam: General: Well alert, well oriented, not confused, not agitated, not in acute distress, well cooperated during the physical. HEENT: Conjunctive are pink, sclerae clear, no icterus, pupil is equal in both sides, reactive to light, no ear discharge, no pharyngeal erythema or an edema. Neck: Supple, no JVD, no lymphadenopathy and thyromegaly. Chest: Equal air entry on both lungs, no additional sounds no rhonchi no wheezing at the moment. Cardiovascular: S1-S2 regular sinus rhythm and, regular rate, no gallops, no rubs, no murmurs Abdomen: No visible peristalsis, Bowel sounds present on auscultation, soft, nontender, no guarding, no rigidity Extremities: No obvious deformities, no pitting edema bilaterally, capillary refill intact, peripheral pulsations are intact on both sides, radial approach without signs of infection or inflammation. No signs of hematoma. Central Nervous System: No focal neurological deficits, no motor or sensory weakness in all 4 extremities, could move all 4 extremities, 2+ deep tendon reflexes, negative Babinski. Musculoskeletal: No joint swelling, deformities, inflammations, and no scoliosis and back tenderness Skin: Warm and dry. Result Diagram: 06/21/25 0200 06/21/25 0200 Coagulation Studies Laboratory Tests Test 06/20/25 14:41 06/21/25 02:00 06/21/25 08:06 Activated Clotting Time 210 SEC (101-148) H Activated Partial Thromboplast Time 31 SECONDS (22-32) APTT (Heparin Protocol) 24 SECONDS (45-60) L Coagulation Comments Assessment Assessment 55 years old female patient came to the hospital with chief complaint of chest pain. Plan Plan 1.NSTEMI (Non-ST Elevation Myocardial Infarction) S/p RCA coronary stent: The patient underwent coronary angiogram with stent placement on 06/20/2025. Plan: Aspirin and Brilinta for one year. Continue carvedilol 3.125 mg daily. Follow-up as an outpatient within two months. 2.Hyperlipidemia Atorvastatin 80 mg daily. 3.Psychiatric Disorders (Depression, Anxiety, Bipolar Disorder, Insomnia) 4.Post-Menopausal Hormone Therapy (Estradiol + Medroxyprogesterone) 5.Electrolyte Abnormalities 6.Social / Lifestyle Factors Management as per primary team. Code status: Full code DVT prophylaxis: SCDs Analgesia/sedation: Morphine Line/tube: PIV GI prophylaxis: None Nutrition: Heart healthy diet PT: Yes Prognosis: Guarded Disposition: Cleared from Cardiology for discharge. Indra Cote Internal Medicine Resident [facility] Patient seen and examined by Dr. Pedro MUNOZ. Overall patient doing well. No chest pain or shortness of breath. Importance of uninterrupted aspirin and Brilinta at least for one year one year discussed with the patient Date of Service: Jun 21, 2025 Billing Provider: VIKAS CASTILLO MD, FRANCO LUIS, RES Jun 21, 2025 19:06 VIKAS CASTILLO MD Jun 21, 2025 20:45
--- NOTE | 2025-06-22 16:30 | Physician Documentation ---
History of Present Illness ~ Chief Complaint: Chest Pain Stated Complaint: CP Time Seen by MD: 20:28 Primary Medical Doctor: Eric De La Rosa [place] Mode of Arrival: EMS HPI 55 years old women with past medical history of dyslipidemia, depression and anxiety comes to ED with left sided chest pain. Patient reports experiencing intermittent chest pain for past 4 weeks with each episode lasting about 10mins and typically improved with breathing. Today, she developed more severe chest pain that began around 4:30 pm when at rest which lasted 2 hours and is described as crushing pain on the left side of chest , radiating to both shoulder, arms and the neck. She also felt palpitations, chills, and dizziness but denies fever, cough, N/V/D. Medication Reconciliation Allergies: Coded Allergies: Penicillins (Verified Allergy, Unknown, 06/22/25) Scheduled Aspirin (Ecotrin*), 1 TAB PO DAILY Atorvastatin Calcium (Atorvastatin Calcium), 80 MG PO HS Bupropion HCl (Bupropion Xl), 1 TAB PO DAILY, (Reported) Buspirone HCl (Buspirone HCl), 1 TAB PO TID, (Reported) Estradiol (Estradiol), 1 TAB PO DAILY, (Reported) Loratadine (Claritin), 1 TAB PO DAILY, (Reported) Losartan Potassium (Losartan Potassium), 25 MG PO DAILY Medroxyprogesterone Acet (Medroxyprogesterone Acetate), 1 TAB PO HS, (Reported) Metoprolol Tartrate* (Lopressor tablet*), 25 MG PO BID Omeprazole Magnesium (Prilosec Otc), 1 TAB PO DAILY, (Reported) Ticagrelor (Brilinta), 90 MG PO BID Trazodone HCl (Trazodone HCl), 1 TAB PO HS, (Reported) Past Medical History Smoking Status: Current every day smoker Review of Systems All Other Systems at this time: Reviewed and Negative Physical Exam Vital Signs: RN Vital Signs have been reviewed: Yes, Temperature: 98.0, Source: Oral, Heart Rate: 64, Respiratory Rate: 15, BP: 111/54, Pulse Oximetry: 97, Weight: 82.000 Oxygen Flow Rate: 0.0 Physical Exam HEENT: PERRL, moist oral mucosa, EOMI Pulmonary: No respiratory distress Cardiac: RRR, no murmur, rub or gallop GI: nondistended, soft, nontender, no guarding, no rebound MSK: no deformity Skin: w/d/i, no rash Neuro: alert, nonfocal Psych: normal affect Progress Results/Orders Results/Orders Orders - IAN SIMON MD Chest,Single View (06/19/25 20:27) Monitor (06/19/25 20:27) Saline Lock (06/19/25 20:27) Oxygen (06/19/25 20:27) Page Hospitalist (06/19/25 21:37) Completed Orders - IAN SIMON MD Chest,Single View (06/19/25 20:27) Cbc/Diff (06/19/25 20:27) BMP (06/19/25 20:27) PBNP (06/19/25 20:) Electrocardiogram (06/19/25 20:27) Hs Troponin I W Calculations (06/19/25 20:27) Hs Troponin I W Calculations (06/19/25 22:27) Hs Troponin I W Calculations (06/19/25 23:27) PTT (06/19/25 21:15) Heparin Drip Acs*Rph-To-Dose* (Heparin D (06/19/25 21:40) Aspirin 81mg Chew Tablet (Aspirin 81mg C (06/19/25 21:40) Nitroglycerin Sublingual Tab (Nitrostat (06/19/25 21:45) Heparin 10,000 Unit/Ml 1ml (Heparin 10,0 (06/19/25 21:45) Heparin 25,000 Unit/250ml Bag (Heparin 2 (06/19/25 21:45) Heparin 10,000 Unit/Ml 1ml (Heparin 10,0 (06/19/25 21:45) Cbc/Diff (06/20/25 03:00) Cbc/Diff (06/21/25 03:00) Message To Nursing (06/19/25 22:00) Cardiac Ptt (06/20/25 04:00) Hgb A1c (06/19/25 20:36) Lipid Panel (06/19/25 20:36) Vital Signs 06/19/25 06/19/25 20:28 21:20 Temp 98.0 Pulse 62 Resp 16 18 B/P (MAP) 125/72 Pulse Ox 99 O2 Flow Rate 0 Laboratory Tests Test 06/19/25 20:36 White Blood Count 9.4 Red Blood Count 4.78 Hemoglobin 14.9 Hematocrit 43.3 Mean Corpuscular Volume 90.4 Mean Corpuscular Hemoglobin 31.2 H Mean Corpuscular Hemoglobin Concent 34.5 Red Cell Distribution Width 12.7 Platelet Count 259 Mean Platelet Volume 7.1 L Neutrophils (%) (Auto) 55.4 Lymphocytes (%) (Auto) 35.4 Monocytes (%) (Auto) 6.2 Eosinophils (%) (Auto) 2.4 Basophils (%) (Auto) 0.6 Neutrophils # (Auto) 5.2 Lymphocytes # (Auto) 3.3 Monocytes # (Auto) 0.6 Eosinophils # (Auto) 0.2 Basophils # (Auto) 0.1 CBC Comment Activated Partial Thromboplast Time 26 Coagulation Comments Sodium Level 138 Potassium Level 3.4 L Chloride Level 105 Carbon Dioxide Level 20.6 L Anion Gap 12 Blood Urea Nitrogen 12 Creatinine 0.96 H Estimated GFR/1.73 m2 60 BUN/Creatinine Ratio 12.5 Glucose Level 140 H Hemoglobin A1c 5.4 Calcium Level 9.8 Troponin I High Sensitivity 324 *H Pro-B-Type Natriuretic Peptide 129 H Albumin 3.9 Triglycerides Level 146 H Cholesterol Level 258 H LDL Cholesterol 193 H HDL Cholesterol 46 Cholesterol/HDL Ratio 5.6 H Chemistry Comments EKG/XRAY/CT/US/VASC/MRI Chest X-Ray : Interpreted By: self Views: 1 VIEW Indication: chest pain Lungs: normal Mediastinum: normal Ribs/Bones: normal Abdomen: normal Impression: no acute disease Medical Decision Making Findings 55 year old female here for chest pain. Exam and vitals unremarkable. Workup was significant for elevated troponins but no STEMI on EKG (interpreted by me which demonstrated no STEMI criteria, no dysrhythmia, normal sinus rhythm). Care transferred to hospitalist. Differential Dx:Considerations: Include: angina, chest wall pain, myocardial infarction, pericarditis, pleuritis, pancreatitis, pneumonia, pneumothorax, pulmonary embolus Departure Disposition: 09 ADMITTED INPATIENT Admitted to Inpatient Unit: to hospitalist Admission Level of Care: Med/Surg Impression: Primary Impression: NSTEMI (non-ST elevated myocardial infarction) Condition: Stable Discharge Instructions: Early Heart Attack Care, Heart Attack, [id number] Referrals: NO PRIMARY CARE PROVIDER (PCP) Prescriptions Aspirin (Ecotrin*) 81 Mg Tablet.dr 1 TAB PO DAILY for 30 Days, #30 TAB.SR Prov: GABINO MACEDO, NEFTALY 06/21/25 Losartan Potassium (Losartan Potassium) 25 Mg Tablet 25 MG PO DAILY for 30 Days, #30 TAB Prov: GABINO MACEDO, NEFTALY 06/21/25 Metoprolol Tartrate* (Lopressor tablet*) 25 Mg Tablet 25 MG PO BID for 30 Days, #60 TAB Hold for SBP below 100mm Hg Hold for Heart Rate below 60. Prov: GABINO MACEDO, NEFTALY 06/21/25 Atorvastatin Calcium (Atorvastatin Calcium) 20 Mg Tablet 80 MG PO HS for 30 Days, #120 TAB Prov: GABINO MACEDO RES 06/21/25 Ticagrelor (Brilinta) 90 Mg Tablet 90 MG PO BID for 30 Days, #60 TAB Prov: GABINO MACEDO, NEFTALY 06/21/25 Education Educated: Patient, Family Educated regarding: diagnosis, treatment, prognosis, need for follow up Signature Scribe Signature: . Attestation: . IAN SIMON MD Jun 22, 2025 16:30
== END 2025-06-21 14:40 | disposition home or self-care (01) | DRG 322 ==
LOC: ER 20:25 → ED HOLD 22:29 → PCU 3S 06-20 00:05
PROVIDERS: ADMIT Internal Medicine; ATTEND Internal Medicine
PROC: 027034Z Dilation of Coronary Artery, One Artery with Drug-eluting Intraluminal Device, Percutaneous Approach (ICD-10-PCS; principal; 2025-06-20)
PROC: 4A023N8 Measurement of Cardiac Sampling and Pressure, Bilateral, Percutaneous Approach (ICD-10-PCS; 2025-06-20)
PROC: B2111ZZ Fluoroscopy of Multiple Coronary Arteries using Low Osmolar Contrast (ICD-10-PCS; 2025-06-20)
PROC: B2151ZZ Fluoroscopy of Left Heart using Low Osmolar Contrast (ICD-10-PCS; 2025-06-20)
PROC: B4201ZZ Computerized Tomography (CT Scan) of Abdominal Aorta using Low Osmolar Contrast (ICD-10-PCS; 2025-06-20)
PROC: B4241ZZ Computerized Tomography (CT Scan) of Superior Mesenteric Artery using Low Osmolar Contrast (ICD-10-PCS; 2025-06-20)
PROC: B4281ZZ Computerized Tomography (CT Scan) of Bilateral Renal Arteries using Low Osmolar Contrast (ICD-10-PCS; 2025-06-20)
PROC: B42C1ZZ Computerized Tomography (CT Scan) of Pelvic Arteries using Low Osmolar Contrast (ICD-10-PCS; 2025-06-20)
PROC: B42H1ZZ Computerized Tomography (CT Scan) of Bilateral Lower Extremity Arteries using Low Osmolar Contrast (ICD-10-PCS; 2025-06-20)
PROC: B4211ZZ Computerized Tomography (CT Scan) of Celiac Artery using Low Osmolar Contrast (ICD-10-PCS; 2025-06-20)
DX: I21.4 Non-ST elevation (NSTEMI) myocardial infarction (principal); F17.200 Nicotine dependence, unspecified, uncomplicated; E78.5 Hyperlipidemia, unspecified; F32.A Depression, unspecified; F41.9 Anxiety disorder, unspecified; E87.6 Hypokalemia; J44.9 Chronic obstructive pulmonary disease, unspecified; Z82.49 Family history of ischemic heart disease and other diseases of the circulatory system; Z98.1 Arthrodesis status; Z88.0 Allergy status to penicillin; Z79.82 Long term (current) use of aspirin; Z79.899 Other long term (current) drug therapy
CPT/HCPCS: 93306; 93460; 96365; 96375; 99285; C9600; 36415; 71045; 71275; 74174; 76937; 80048; 80053; 80061; 80305; 81003; 82803; 83036; 83735; 83880; 84484; 85014; 85025; 85347; 85730; 87081; 93005; 99152; 99153; A6258; C1725; C1751; C1769; C1874; C1894; G0378; J0461; J1171; J1644; J2003; J2250; J3010; J3490; J7030; J7040; Q0163; Q9967

== ENCOUNTER 2025-06-22 11:38 | Emergency (ER) | payer BC ==
[~2025-06-22] VITALS: Ht 157.5 cm; Wt 71.4 kg
[~2025-06-22 11:38] MED LIST: ASPI-1071 PO; ATOR20TA66 PO; BUPR-726 PO; BUSP10TA3 PO; ESTR1TAB28 PO; LOP25T PO; LORA10TA65 PO; LOSA25TA41 PO; MEDR5TAB4 PO; OMEP20TA23 PO; TICA90TA PO; TRAZ-251 PO
--- NOTE | 2025-06-22 12:47 | ELECTROCARDIOGRAPH REPORT ---
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
[2025-06-22 15:08] LABS: MEAN PLATELET VOLUME 7.9 FL (7.4-10.4); RED CELL DISTRIBUTION WIDTH 12.7 % (11.5-14.5)
[2025-06-22 15:25] LABS: CREATININE 0.82 MG/DL (0.40-0.90); PRO BRAIN NATRIURETIC PEPTIDE 442 PG/ML (0-125); TOTAL CARBON DIOXIDE 24.9 MMOL/L (24-32); eCRCL 61 ML/MIN; eGFR 72 ML/MIN
[2025-06-22 16:35] VITALS: TEMP 97.9
[2025-06-22 19:12] VITALS: BP 123/74; PULSE 68; RESP 16; O2SAT 95
== END 2025-06-22 19:14 | disposition home or self-care (01) ==
LOC: ER 11:39
DX: F41.9 Anxiety disorder, unspecified (principal); R07.89 Other chest pain; I25.2 Old myocardial infarction; Z88.0 Allergy status to penicillin; Z79.82 Long term (current) use of aspirin; Z79.899 Other long term (current) drug therapy
CPT/HCPCS: 36415; 80048; 83880; 84484; 85025; 93005; 99285

== ENCOUNTER 2025-07-31 09:16 | Emergency (ER) | payer BC ==
[~2025-07-31] VITALS: Ht 157.5 cm; Wt 75.1 kg
--- NOTE | 2025-07-31 09:25 | ELECTROCARDIOGRAPH REPORT ---
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
[2025-07-31 10:05] LABS: MEAN PLATELET VOLUME 7.4 FL (7.4-10.4); RED CELL DISTRIBUTION WIDTH 12.4 % (11.5-14.5)
--- NOTE | 2025-07-31 10:21 | RADIOLOGY REPORT ---
DI CHEST,SINGLE VIEW, HISTORY: CP COMPARISON: DI CHEST,SINGLE VIEW on DOS: 06/19/25 DI CHEST,SINGLE VIEW on DOS: 06/19/25 TECHNICAL DATA: 1 view of the chest was obtained. FINDINGS: Lines and tubes: None Cardiomediastinal silhouette: normal Pulmonary vasculature: normal Lung expansion: normal Lung airspace: normal Lung interstitium: normal Pleura: normal Pneumothorax: no Bones: Unremarkable Other: no IMPRESSION: No acute intrathoracic abnormality.
[2025-07-31 10:43] LABS: CREATININE 0.77 MG/DL (0.40-0.90); PRO BRAIN NATRIURETIC PEPTIDE 203 PG/ML (0-125); TOTAL CARBON DIOXIDE 24.3 MMOL/L (24-32); eCRCL 65 ML/MIN; eGFR 78 ML/MIN
[2025-07-31 11:14] VITALS: TEMP 98.3
--- NOTE | 2025-07-31 12:22 | Physician Documentation ---
History of Present Illness ~ Chief Complaint: Chest Pain Stated Complaint: CHEST PAIN Time Seen by MD: 12:08 Primary Medical Doctor: [facility] Source: patient (14) HPI Patient comes in for evaluation of chest pain. She has a history of stent placement one month ago by Dr. Wilson remotely, and reports that she woke at 2:30 a.m. this morning with severe chest pain which she felt in the retrosternal area, also going down into her epigastrium and around her stomach and her ribs and into her arms bilaterally. She reports some elevated blood pressure during the same period of time. She was able to sleep during the night but she had the same pain again at 8:00 a.m. this morning. She did not take any nitroglycerin which she does not have at home. She reports that she has a low epigastric ache currently. Patient takes Protonix at home for some GERD, but only takes 20 mg. Medication Reconciliation Allergies: Coded Allergies: Penicillins (Verified Allergy, Unknown, 06/22/25) Scheduled Aspirin (Ecotrin*), 1 TAB PO DAILY Atorvastatin Calcium (Atorvastatin Calcium), 80 MG PO HS Bupropion HCl (Bupropion Xl), 1 TAB PO DAILY, (Reported) Buspirone HCl (Buspirone HCl), 1 TAB PO TID, (Reported) Estradiol (Estradiol), 1 TAB PO DAILY, (Reported) Loratadine (Claritin), 1 TAB PO DAILY, (Reported) Losartan Potassium (Losartan Potassium), 25 MG PO DAILY Medroxyprogesterone Acet (Medroxyprogesterone Acetate), 1 TAB PO HS, (Reported) Metoprolol Tartrate* (Lopressor tablet*), 25 MG PO BID Omeprazole Magnesium (Prilosec Otc), 1 TAB PO DAILY, (Reported) Ticagrelor (Brilinta), 90 MG PO BID Trazodone HCl (Trazodone HCl), 1 TAB PO HS, (Reported) Past Medical History Past Medical History: Coronary Artery Disease, High Cholesterol, Hypertension, Chronic Pain, Bipolar Smoking Status: Former smoker (Quit last month) Alcohol Use: Rarely Drug Use: none Review of Systems All Other Systems at this time: Reviewed and Negative Physical Exam Vital Signs: Temperature: 98.3, Source: Oral, Heart Rate: 60, Respiratory Rate: 16, BP: 102/48, Pulse Oximetry: 99, Weight: 75.100 Oxygen Flow Rate: 0 Physical Exam General: Pt is awake, alert, oriented x4 in no acute distress and well appearing. Head: Normocephalic and atraumatic. Eyes: Conjunctiva normal. ENT: Mucous membranes moist. Neck: Supple. Chest: Clear to auscultation bilaterally, without rales, rhonchi, or wheezes. There is no accessory muscle use or retractions. Cardiac: Regular rate and rhythm without murmurs, gallops or rubs. Palpation of the chest wall is normal. Abd: Soft, nondistended, nontender, with normoactive bowel sounds. No guarding or rebound. Extremities: Within normal limits without cyanosis, clubbing, or edema. Skin: [place], warm and dry with no significant rash appreciated. Neuro: Cranial nerves II-XII grossly intact. The gait is normal. Progress Results/Orders Results/Orders Orders - KRISTINA MOROCHO MD Chest,Single View (07/31/25 09:21) Saline Lock (07/31/25 09:21) Oxygen (07/31/25 09:21) Monitor (07/31/25 09:21) To Page (07/31/25 12:41) Pantoprazole Tablet (Protonix) (07/31/25 14:05) Completed Orders - KRISTINA MOROCHO MD Chest,Single View (07/31/25 09:21) Cbc/Diff (07/31/25 09:21) BMP (07/31/25 09:21) PBNP (07/31/25 09:21) Electrocardiogram (07/31/25 09:21) Hs Troponin I W Calculations (07/31/25 09:21) Hs Troponin I W Calculations (07/31/25 11:21) Hs Troponin I W Calculations (07/31/25 12:21) Sucralfate Tablet (Carafate Tablet) (07/31/25 13:30) Pantoprazole 40mg Iv (Protonix 40mg Iv) (07/31/25 13:30) Pantoprazole Tablet (Protonix) (08/01/25 07:30) Medications Received in ER Medications (Trade) Dose Ordered Sig/Luz Maria Route PRN Reason Start Time Stop Time Status Last Admin Dose Admin (Carafate tablet) 2 gm ONCE ONCE PO 07/31/25 13:30 07/31/25 13:31 DC 07/31/25 14:13 2 GM (Protonix) 40 mg BKF PO 07/31/25 14:05 07/31/25 14:12 40 MG Vital Signs 07/31/25 07/31/25 07/31/25 07/31/25 09:22 11:14 11:30 11:54 Temp 98.5 98.3 Pulse 71 60 63 Resp 18 16 16 16 B/P (MAP) 114/70 102/48 (66) 117/94 (102) Pulse Ox 96 96 96 O2 Flow Rate 0 0 0 07/31/25 07/31/25 11:57 12:37 Pulse 65 Resp 17 B/P (MAP) 118/67 (84) Pulse Ox 99 97 O2 Delivery Room Air* O2 Flow Rate 0 0 FiO2 21 Laboratory Tests Test 07/31/25 09:24 07/31/25 11:18 07/31/25 12:11 White Blood Count 6.4 Red Blood Count 4.88 Hemoglobin 15.2 Hematocrit 44.4 Mean Corpuscular Volume 91.1 Mean Corpuscular Hemoglobin 31.1 H Mean Corpuscular Hemoglobin Concent 34.1 Red Cell Distribution Width 12.4 Platelet Count 247 Mean Platelet Volume 7.4 Neutrophils (%) (Auto) 63.2 Lymphocytes (%) (Auto) 27.4 Monocytes (%) (Auto) 5.2 Eosinophils (%) (Auto) 3.7 Basophils (%) (Auto) 0.5 Neutrophils # (Auto) 4.1 Lymphocytes # (Auto) 1.8 Monocytes # (Auto) 0.3 Eosinophils # (Auto) 0.2 Basophils # (Auto) 0.0 CBC Comment Sodium Level 139 Potassium Level 4.1 Chloride Level 108 H Carbon Dioxide Level 24.3 Anion Gap 7 L Blood Urea Nitrogen 15 Creatinine 0.77 Estimated GFR/1.73 m2 78 BUN/Creatinine Ratio 19.5 Glucose Level 118 H Calcium Level 9.1 Troponin I High Sensitivity 5 5 5 Pro-B-Type Natriuretic Peptide 203 H Albumin 3.4 Chemistry Comments Troponin I High Sens Percent Delta 0 0 Troponin I Hi Sens Absolute Change 0 0 Re-Evaluation Re-Evaluation : Re-Evaluation Time: 14:29 Progress Patient was feeling much better and was eating a patient lunch. However, eating seemed to make the pain worse, in the epigastrium. EKG/XRAY/CT/US/VASC/MRI EKG : Indication: chest pain EKG Rate: 70 EKG: NSR EKG Blocks: none [place]: normal Hypertrophy: none Additional Comment My interpretation Consults/PCP Consults/PCP : Time Call Requested: 12:[address] Smith unavailable. I spoke with Dr. Luis, on-call for him. We discussed the patient's prior history, recent stenting, current EKG, and troponin levels. He feels that the patient is safe for discharge and can follow-up with Dr. William Humphreys as an outpatient. Medical Decision Making Additional Information Patient presenting with chest pain centered in the epigastrium, going on since 2:00 a.m. in the morning. There is no evidence for ischemia on EKG and serial troponins x3 are within normal limits with no evidence for ischemic change. The timing of onset of pain at 2:30 a.m. is also suggestive of a gastroesophageal etiology, and patient has a history of GERD. She has tenderness on examination here, and worsening when eating in the department. I am going to increase her dose of PPI, and add Carafate. Per the wellness instructor patient is stable for discharge and can follow-up closely with her wellness instructor once she is discharged. She understands that she can and should return immediately to the emergency department for any worsening of her symptoms or any other concerns. Departure Time of Disposition: 14:30 Disposition: 01 HOME / SELF CARE / HOMELESS Impression: Primary Impression: Acute chest pain Condition: Stable Discharge Instructions: Nonspecific Chest Pain, Adult Additional Instructions: Your EKG and your serial troponin levels in the emergency department were normal, which is reassuring. Per Dr. Luis it is safe to send you home and he asks that you follow-up closely with . Please continue all of your regular medications, except discontinue the omeprazole as I am going to start you on a different proton pump inhibitor and add Carafate. Return to the emergency department if you have any new or worsening symptoms or any other concerns. Referrals: NO PRIMARY CARE PROVIDER (PCP) Prescriptions Pantoprazole Sodium (PROTONIX tablet) 40 Mg Tablet.dr 1 TAB PO DAILY for 30 Days, #30 TAB 0 Refills Prov: KRISTINA MOROCHO MD 07/31/25 Sucralfate (Carafate) 1 Gram/10 Ml Oral.susp 10 ML PO Q12H for 6 Days, #120 ML 0 Refills before food and bedtime Prov: KRISTINA MOROCHO MD 07/31/25 Education Educated: Patient Educated regarding: diagnosis, treatment Signature Scribe Signature: Attestation: KRISTINA MOROCHO MD Jul 31, 2025 12:22
[2025-07-31] MEDS: pantoprazole 40mg Tablet.DR PO SCH (14:12)
[2025-07-31] MEDS ORDERED: SUCR1ORA12 PO (14:32)
[2025-07-31] MEDS ORDERED: PANT-47 PO (14:32)
[2025-07-31 14:53] VITALS: BP 129/76; PULSE 61; RESP 18; O2SAT 97
[2025-08-01] MEDS ORDERED: pantoprazole 40mg Tablet.DR PO SCH (07:30)
== END 2025-07-31 15:03 | disposition home or self-care (01) ==
LOC: ER 09:17
DX: R07.9 Chest pain, unspecified (principal); E78.00 Pure hypercholesterolemia, unspecified; F31.9 Bipolar disorder, unspecified; G89.29 Other chronic pain; I10 Essential (primary) hypertension; I25.10 Atherosclerotic heart disease of native coronary artery without angina pectoris; K21.9 Gastro-esophageal reflux disease without esophagitis; Z88.0 Allergy status to penicillin; Z79.82 Long term (current) use of aspirin; Z79.899 Other long term (current) drug therapy
CPT/HCPCS: 36415; 71045; 80048; 83880; 84484; 85025; 93005; 99285